=== PATIENT | female | born 1955 | race Caucasian/White ===

== ENCOUNTER 2020-11-20 06:07 | Inpatient (IN) ==
[~2020-11-20 06:07] MED LIST: Buffered Lidocaine 1% SYRIN 1 ml INTRADERM ONE; Famotidine IV 10 MG/ML 2 ml VIAL (20 mg) IV ONE; Lactated Ringers 1000 ml BAG 1,000 ML IV SCH
[2020-11-20] MEDS ORDERED: ceFAZolin 2 GM in NS PREMIX 2 GM/100 ML BAG IVPB ONE (06:50)
[2020-11-20] MEDS ORDERED: Famotidine IV 10 MG/ML 2 ml VIAL (20 mg) ONE (06:50)
[2020-11-20] MEDS ORDERED: Propofol 1,500 MG/150 ML BTL ONE (06:58)
[2020-11-20] MEDS ORDERED: Propofol 10 MG/ML 20 ML BTL ONE (07:01)
[2020-11-20] MEDS ORDERED: Glycopyrrolate IV 0.2 MG/ML 1 ML VIAL ONE (07:01)
[2020-11-20] MEDS ORDERED: Lidocaine 2% PF 5 ML VIAL ONE (07:01)
[2020-11-20] MEDS ORDERED: Phenylephrine IV 10 MG/ML 1 ml VIAL ONE (07:01)
[2020-11-20] MEDS ORDERED: Ondansetron 4 mg VIAL 2 MG/ML 2 ml VIAL ONE (07:01)
[2020-11-20] MEDS ORDERED: Dexamethasone IV 4 MG/ML VIAL 1 ml VIAL ONE (07:01)
[2020-11-20] MEDS ORDERED: fentaNYL 100 mcg/2 ml 50 MCG/ML VIAL ONE ×4 (07:14→11:34)
[2020-11-20] MEDS ORDERED: ROPIVACAINE 5 MG/ML 30 ML BTL (0.5%) ONE ×2 (07:17→07:23)
[2020-11-20] MEDS ORDERED: Midazolam 2 mg/2 ml VIAL 1 mg/ml 2 ml VIAL (2 mg) ONE ×2 (07:44→08:41)
[2020-11-20] MEDS ORDERED: diPHENhydraMINE IV 50 MG/ML 1 ml VIAL (BENADRYL) IV PRN ×2 (09:06→11:09)
[2020-11-20] MEDS ORDERED: Naloxone 0.4 mg VIAL 0.4 mg/ml 1 ml VIAL IV PRN (09:06)
[2020-11-20] MEDS ORDERED: Ondansetron 4 mg VIAL 2 MG/ML 2 ml VIAL IV PRN ×2 (09:06→11:09)
[2020-11-20] MEDS ORDERED: DiMENhydriNATE IV 50 mg/ml 1 ml VIAL IV PUSH PRN (09:06)
[2020-11-20] MEDS ORDERED: Morphine 2 MG/ML SYRINGE IV PRN (11:09)
[2020-11-20] MEDS ORDERED: Magnesium Hydroxide LIQ 30 ML UDC PO PRN (11:09)
[2020-11-20] MEDS ORDERED: Ondansetron ODT 4 mg TAB 4 MG TAB PO PRN (11:09)
[2020-11-20] MEDS ORDERED: Lactulose 30 ml UDC PO PRN (11:09)
[2020-11-20] MEDS ORDERED: diPHENhydraMINE 25 mg TAB PO PRN (11:09)
[2020-11-20] MEDS: fentaNYL 100 mcg/2 ml 50 MCG/ML VIAL IV PRN ×2 (11:34→12:30)
[2020-11-20] MEDS ORDERED: Lactated Ringers 1000 ml BAG 1,000 ML IV SCH (12:00)
[2020-11-20] MEDS: ceFAZolin 1 GM ADVAN 1 GM in NS 0.9% 50 ML 50 ML IVPB SCH (17:10)
[2020-11-20] MEDS ORDERED: Latanoprost 0.005% 2.5 ml BTL BOTH EYES SCH (18:00)
[2020-11-20] MEDS: Magnesium Hydroxide LIQ 30 ML UDC PO SCH (23:49)
[2020-11-21] MEDS: ceFAZolin 1 GM ADVAN 1 GM in NS 0.9% 50 ML 50 ML IVPB SCH ×2 (01:34→09:18)
[2020-11-21 06:59] LABS: Hematocrit 34 % (35-47); Hemoglobin 11.5 g/dL (12.0-16.0); Mean Platelet Volume 8.2 fL (7.4-10.4); Platelet Count 259 10^3/uL (150-450)
[2020-11-21 07:15] LABS: Calcium 8.7 mg/dL (8.6-10.3); EGFR African American 116.2 (>60); Potassium 4.3 mmol/L (3.5-5.0)
[2020-11-21] MEDS ORDERED: Vitamin THERAPEUTIC TAB PO SCH (09:00)
[2020-11-21] MEDS: Magnesium Hydroxide LIQ 30 ML UDC PO SCH (09:19)
[2020-11-21 11:46] VITALS: BP 139/81
== END 2020-11-21 13:53 | disposition home or self-care (01) | DRG 470 ==
LOC: AA 06:07 → SSU 13:10
PROVIDERS: ADMIT Orthopaedic Surgery Adult Reconstructive Orthopaedic Surgery; ATTEND Orthopaedic Surgery Adult Reconstructive Orthopaedic Surgery